=== PATIENT | female | born 1980 | race Two or more races ===

== ENCOUNTER 2023-02-03 12:27 | Emergency (ER) | payer OTHER ==
[~2023-02-03] VITALS: Ht 177.8 cm; Wt 111.0 kg
[2023-02-03 13:51] VITALS: BP 118/64; PULSE 101; RESP 16; TEMP 97.5; O2SAT 97
[2023-02-03] MEDS ORDERED: LIDOCAINE 1% HCL (LOCAL ANESTH.) INJ 20ML MDV IJ ONE (14:00)
[2023-02-03] MEDS ORDERED: CEPH500C PO (14:00)
== END 2023-02-03 14:22 | disposition home or self-care (01) ==
LOC: ER 12:27
DX: S61.011A Laceration without foreign body of right thumb without damage to nail, initial encounter (principal); E11.9 Type 2 diabetes mellitus without complications; Z79.899 Other long term (current) drug therapy; W26.0XXA Contact with knife, initial encounter; Y93.89 Activity, other specified; Y92.89 Other specified places as the place of occurrence of the external cause; Y99.8 Other external cause status
CPT/HCPCS: 12001; 99283; J2001